=== PATIENT | female | born 1970 | race Caucasian/White ===

== ENCOUNTER → 2017-12-15 | Outpatient (CLI) | payer BC, OTHER ==
[~2017-12-15] MED LIST: ADVIL100 M2; CELEXA 20 MG TA20 MG; CIPROFLOXACIN500 M1 PO; IBUPROFEN 600600 M1 PO; NORCO 5-325 TA1 EACH PO; PREVACID 24HR15 MG PO; VICOPROFEN 2001 EACH PO; ZOFRAN ODT4 MG PO
== END ==
LOC: RAD 10:06
DX: K44.9 Diaphragmatic hernia without obstruction or gangrene (principal); K21.9 Gastro-esophageal reflux disease without esophagitis; J45.909 Unspecified asthma, uncomplicated